=== PATIENT | female | born 1995 ===

== ENCOUNTER 2018-05-10 11:23 | Emergency (ER) | payer BC ==
[2018-05-10 11:47] VITALS: BP 133/78; PULSE 88; RESP 20; TEMP 98; O2SAT 98
[2018-05-10] MEDS ORDERED: Sodium Chloride 0.9% 1,000 ML IV STA (11:52)
--- NOTE | 2018-05-10 11:55 | ED PDOC ---
HPI: General Adult Time Seen by Provider: 05/10/18 11:32 Chief Complaint (Nursing): ENT Problem Chief Complaint (Provider): TMJ pain History Per: Patient History/Exam Limitations: no limitations Onset/Duration Of Symptoms: Days (today) Additional Complaint(s): Pt. states that while doing push ups she felt her jaw pop and since then both sides of her jaw joint are not aligned and possibly out. She is able to put it back in, but it comes out again. No numbness, tingles, weakness, headaches, dizziness, neck pain. Able to close mouth and align teeth, but it come out if she relaxes. Past Medical History Reviewed: Nursing Documentation, Vital Signs Vital Signs: Last Vital Signs Temp 98 F 05/10/18 11:44 Pulse 88 05/10/18 11:44 Resp 20 05/10/18 11:44 BP 133/78 05/10/18 11:44 Pulse Ox 98 05/10/18 11:44 - Medical History PMH: No Chronic Diseases - Surgical History Surgical History: No Surg Hx - Family History Family History: States: Unknown Family Hx - Living Arrangements Living Arrangements: With Family - Home Medications Home Medications: Ambulatory Orders Medication Instructions Recorded Ibuprofen [Motrin] 600 mg PO TID 7 Days tab 05/10/18 - Allergies Allergies/Adverse Reactions: Allergies Allergy/AdvReac Type Severity Reaction Status Date / Time No Known Allergies Allergy Verified 05/10/18 11:44 Review of Systems ROS Statement: Except As Marked, All Systems Reviewed And Found Negative ENT: Positive for: Other (b/l TMJ pain) Physical Exam - Reviewed Nursing Documentation Reviewed: Yes Vital Signs Reviewed: Yes - Physical Exam Appears: Positive for: Non-toxic, No Acute Distress Head Exam: Positive for: ATRAUMATIC, NORMAL INSPECTION, NORMOCEPHALIC Skin: Positive for: Normal Color, Warm, DRY Eye Exam: Positive for: EOMI, Normal appearance, PERRL ENT: Positive for: Other (B/L TMJ tender; pt. can align teeth, but if relaxed if is not aligned, with bottom jaw going left. Able to open and close mouth.). Negative for: Nasal Congestion, Pharyngeal Erythema Neck: Positive for: Normal, Painless ROM Cardiovascular/Chest: Positive for: Regular Rate, Rhythm Respiratory: Positive for: CNT, Normal Breath Sounds Back: Positive for: Normal Inspection. Negative for: L CVA Tenderness, R CVA Tenderness Extremity: Positive for: Normal ROM Neurologic/Psych: Positive for: Alert, kennel manager dog track II-XII, Oriented. Negative for: Aphasia, Facial Droop - Laboratory Results Result Diagrams: 05/10/18 12:40 05/10/18 12:40 Lab Results: no acute - ECG O2 Sat by Pulse Oximetry: 98 Pulse Ox Interpretation: Normal - Progress ED Course And Treament: 1312: Stable. Feels much better. Pt. given ativan and toradol. After meds, she felt relaxed and jaw back in place. Able to open and close mouth with no issues. Moving jaw left and right with no issues. Fu with dentist. No pain. Tolerated PO. AAOx3. Disposition - Clinical Impression Clinical Impression: Jaw dislocation - Patient ED Disposition Is Patient to be Admitted: No Counseled Patient/Family Regarding: Studies Performed, Diagnosis, Need For Followup, Rx Given - Disposition Referrals: [facility] [Outside] - 05/11/18 Disposition: Routine/Home Disposition Time: 13:14 Condition: STABLE Additional Instructions: Return if not better in 3 days. Prescriptions: Ibuprofen [Motrin] 600 mg PO TID 7 Days tab Instructions: Dislocated Jaw Forms: [facility] (Yoruba), [facility] ED School/Work Excuse
[2018-05-10 12:55] LABS: BASO % 0.5 % (0.0-2.0); EOS % 0.4 % (0.0-4.0); HEMOGLOBIN 12.3 g/dL (12.0-16.0); LYMPH # 1.9 K/uL (1.0-4.3); MEAN CORPUSCULAR HEMOGLOBIN 30.6 pg (27.0-31.0); MEAN CORPUSCULAR HGB CONC 32.5 g/dL (33.0-37.0); MEAN PLATELET VOLUME 10.2 fl (7.2-11.7); MONO # 0.3 K/uL (0.0-0.8); MONO % 4.2 % (0.0-10.0); NEUT # 5.5 K/uL (1.8-7.0); NEUT % 70.9 % (50.0-75.0); NRBC % 0.1 % (0.0-0.0); RBC 4.03 Mil/uL (3.80-5.20); RED CELL DISTRIBUTION WIDTH 13.4 % (11.5-14.5); WHITE BLOOD COUNT 7.8 K/uL (4.8-10.8)
[2018-05-10 12:57] LABS: ALB/GLOB RATIO 1.1 (1.0-2.1); ALBUMIN 4.1 g/dL (3.5-5.0); BLOOD UREA NITROGEN 11 mg/dl (7-17); CALCIUM 9.1 mg/dL (8.4-10.2); GFR NON-AFRICAN AMERICAN > 60
[2018-05-10 13:02] LABS: ALT/SGPT 16 U/L (9-52); AST/SGOT 29 U/L (14-36)
== END 2018-05-10 14:00 | disposition home or self-care (01) ==
LOC: H.ER 11:23
DX: S03.00XA Dislocation of jaw, unspecified side, initial encounter (principal); Y93.B2 Activity, push-ups, pull-ups, sit-ups
CPT/HCPCS: 80053; 85025; 96374; 96375; 99283; J1885; J2060; J7030